=== PATIENT | female | born 1955 | race Caucasian/White ===

== ENCOUNTER 2019-05-24 19:16 | Emergency (ER) | payer MEDICAID, SELFPAY ==
[2019-05-24] VITALS (9 sets, daily range): BP systolic 130–148; BP diastolic 66–73; PULSE 60–74; RESP 16–24; TEMP 36.4–36.8; O2SAT 94–96
--- NOTE | 2019-05-24 19:25 | ED_ITS ---
Entered by Ramona Garcia, acting as scribe for Demetria Gaffney HPI - Arrhythmia/Palpitations General: Chief Complaint: General Medical Stated Complaint: heart palpitations/light headed Time Seen by Provider: 05/24/19 19:21 Source: patient and family Mode of arrival: ambulatory History of Present Illness: HPI narrative: 64 y/o female presents to the ED with complaint of lightheadedness and rapid HR. Pt states she has a Pacemaker/Defibrilator that was adjusted this last summer. Pt was seen here at that time for similar symptoms. She reports having some mild SOB. Pt states this started yesterday but has persisted today. She denies any chest pain, syncope, but does get lightheaded when she stands up quickly. MD complaint: rapid heart beat Onset (ago): day(s) (1) Duration: constant Severity: similar to previous episodes Context: awoke with symptoms Associated symptoms: Deny diaphoresis, nausea, pre-syncope, syncope or vomiting Review of Systems 2 General: Reports: other (negative unless marked) Const: Denies: fever, chills, body aches, fatigue, malaise or diaphoresis Eyes: Denies: change in vision or blurry vision ENMT: Denies: throat pain, painful swallowing, hoarseness, ear pain, ear discharge, Change in hearing or nasal discharge Card: Reports: palpitations, irregular heart rhythm and lightheadedness; Denies: syncope, pre-syncope, shortness of breath on exertion, shortness of breath when lying down or leg pain with exertion Resp: Denies: productive cough, non-productive cough, wheezing, coughing up blood or chest congestion GI: Denies: abdominal pain, nausea, vomiting, vomiting blood, coffee grounds in vomit, diarrhea, constipation, cramping, blood in stool or black tarry stool : Denies: flank pain, painful urination, urinary frequency, urinary urgency, decreased urine ouput, urinary incontinence or blood in urine Musc: Denies: neck pain, back pain, extremity pain, extremity swelling, joint pain, joint swelling, joint warmth or joint stiffness Skin/Breast: Denies: rash, skin tenderness or yellow skin Neuro: Denies: headache, numbness in extremities, weakness in extremities, changes in sensation, lack of coordination, difficulty walking, vertigo or confusion Endo: Denies: excessive thirst, tired all the time, cold intolerance, excessiv e sweating, flushing or hot flashes Vinny/Lymph: Denies: easy bruising, easy bleeding, petechiae or enlarged lymph nodes All/Imm: Denies: hives, throat swelling, tongue swelling, facial swelling or acute wheezing PFSH ED PFSH: Statuses (acute, chronic, etc) shown below reflect problem list status as previously entered and may not be historically accurate Social History Smoking and tobacco status: never smoked Physical Exam Const: COMMON NORMALS: no apparent distress, oriented x3, no limitations, healthy appearing and well nourished EXAM LIMITATIONS: no altered mental status GENERAL APPEARANCE: cooperative, well kempt and well developed ORIENTATION/CONSCIOUSNESS: Yes awake HENMT: COMMON NORMALS: normocephalic, head/scalp atraumatic, hearing grossly normal bilaterally, external ears normal, EAC's normal, external nose normal and moist oral mucous membranes HEAD & SCALP: normal to inspection, normocephalic and atraumatic FACE & SINUS: normal facial exam and face symmetric NOSE: external nose normal and nares normal EXTERNAL EAR: Yes external ears normal EXTERNAL AUDITORY CANAL: EAC's normal MOUTH: oral and palatal mucosa normal and tongue normal Eye: COMMON NORMALS: PERRL, EOMs intact bilaterally, conjunctivae normal and no scleral icterus GENERAL EYE: normal appearance of both eyes and normal light reflex CONJUNCTIVA: Yes conjunctivae normal SCLERA: sclerae normal CORNEA: Yes corneas normal PUPIL: Yes PERRL DIRECT OPHTHALMOSCOPY: Yes normal light reflex Neck/C-Spine: COMMON NORMALS: full ROM, no lymphadenopathy, supple, no meningeal signs and no JVD GENERAL: Yes normal visual inspection and Yes trachea midline CERVICAL SPINE: Yes cervical ROM normal Chest: COMMONS NORMALS: inspection of chest normal and palpation of chest normal Resp: COMMON NORMALS: normal respiratory effort, no retractions, no use of accessory muscles and clear to auscultation bilaterally EFFORT & INSPECTION: Yes able to speak in complete sentences AUSCULTATION: clear to auscultation bilaterally Cardio: COMMON NORMALS: no JVD, regular rate, regular rhythm, S1 normal heart sound, S2 normal heart sound, no gallops, no clicks, no murmurs and no rub JUGULAR VENOUS DISTENTION: no JVD RATE: regular rate RHYTHM: regular rhythm HEART SOUNDS: S1 normal and S2 normal GI: COMMON NORMALS: soft to palpation, non-tender, no hepatosplenomegaly and no masses INSPECTION: Yes normal to inspection PALPATION: Yes soft and Yes no hepatosplenomegaly : COMMON NORMALS: Yes no CVA tenderness BLADDER/KIDNEY EXAM: Yes no CVA tenderness Back/Pelvis: COMMON NORMALS: no CVA tenderness, thoracic and lumbar spine norm al to inspection, no thoracic nor lumbar tenderness and thoraco-lumbar ROM normal Extremity: COMMON NORMALS: normal to inspection, full ROM, normal capillary refill, no joint enlargement, no clubbing, cyanosis or edema and no calf tenderness Neuro: COMMON NORMALS: oriented x3, CN's II-XII intact bilaterally, moves all extremities, no focal motor deficits and no sensory deficits noted MENINGEAL SIGNS: Yes no meningeal signs Psych: COMMON NORMALS: mental status grossly normal, thought process normal, cooperative, affect normal, speech normal and activity/motor behavior normal APPEARANCE: Yes well kempt SPEECH: Yes normal speech THOUGHT PROCESS: normal thought process Skin: COMMON NORMALS: no rashes or lesions noted, skin turgor normal, no jaundice, no petechiae and no mottling GENERAL SKIN EXAM: no rashes or lesions noted and turgor normal Course Vital Signs: Vital signs: Vital Signs Temperature 98.3 F 05/24/19 19:56 Pulse Rate 60 05/24/19 23:38 Respiratory Rate 24 H 05/24/19 23:38 Blood Pressure 130/66 05/24/19 23:38 Pulse Oximetry 95 05/24/19 23:38 MDM - Arrhythmia/Palpitations MDM Narrative: Medical decision making narrative: Cindy's pacemaker was interrogated and she has had multiple short runs of ventricular tachycardia that have always been terminated by her pacemaker/defibrillator. Episodes are typically lasting between 6 and 8 seconds at most 10 to 15 seconds. Her EKG is here tonight show a paced rhythm AV sequential paced rhythm with 100% capture with occasional PVC. Potassium magnesium are normal. She is not having chest pain and her troponin has not risen. I reviewed the case in full with Dr. Adams who knows the patient well and is taken care of her before for the same exact problem. He states that the patient can increase her amiodarone to 400 mg daily and stop her digoxin. The patient already has a follow-up appointment with him in the office this week. She declines admission even though I have offered and she wants to go home with Dr. Adams's recommendations. Dr. Adams says she has no history of coronary disease and believes that she will be safe for discharge as her pacemaker is working appropriately and her amiodarone should help prevent any further problems. Lab Data: Attestation: I reviewed the patient's lab results. Labs: Lab Results 05/24/19 05/24/19 05/24/19 Range/Units 19:40 19:40 19:40 WBC 10.4 H (4.0-10.0) 10^3/ uL RBC 4.79 (4.1-5.3) 10^6/u L Hgb 14.9 (11.5-15.3) g/dL Hct 45.3 (37.0-47.0) % MCV 94.6 (81-99) fL MCH 31.1 (28.0-34.0) pg MCHC 32.9 (30.0-36.0) g/dL RDW 12.9 (12.1-15.1) % Plt Count 234 (130-400) 10^3/c mm MPV 10.9 H (7.4-10.4) fL Neut % (Auto) 63.7 % Lymph % (Auto) 22.8 % Manati % (Auto) 8.4 % Eos % (Auto) 3.7 % Baso % (Auto) 1.0 % Neut # (Auto) 6.6 (1.8-7.7) 10^3/u L Lymph # (Auto) 2.4 (0.8-4.8) 10^3/u L Manati # (Auto) 0.9 (0.2-0.9) 10^3/u L Eos # (Auto) 0.4 (0.0-0.8) 10^3/u L Baso # (Auto) 0.1 (0.0-0.1) 10^3/u L Nucleated RBC % (a uto) 0 % Nucleated RBCs # 0.0 /100WBC PT (10.5-13.3) SECO NDS INR (0.8-1.2) APTT (23.9-36.7) SECO NDS Sodium 134 L (136-145) mmol/L Potassium 4.4 (3.5-5.1) mmol/L Chloride 95 L (98-107) mmol/L Carbon Dioxide 30 H (22-29) mmol/L Anion Gap 13.4 (5-19) BUN 19 (8-23) mg/dL Creatinine 0.7 (0.5-0.9) mg/dL GFR Calculation 83.7 L (90-130) mL/min Glucose 120 H (74-106) mg/dL Calcium 9.6 (8.8-10.2) mg/Dl Magnesium 2.4 H (1.7-2.3) mg/dL Total Bilirubin 0.4 (0.15-1.2) mg/dL AST 28 (0-32) U/L ALT 29 (0-33) U/L Alkaline Phosphata se 201 H (35-105) IU/L Troponin T Baselin e 19 H (0-10) ng/mL Troponin T 120 Min rosebud (0-10) ng/mL Delta Troponin T (0-10) ABS# Total Protein 7.6 (6.6-8.7) g/dL Albumin 4.3 (3.5-5.2) g/dL Globulin 3.3 (1.3-4.6) g/dL Urine Color (Yellow) Urine Appearance (CLEAR) Urine pH (5-7) Ur Specific Gravit y (1.005-1.030) Urine Protein (Negative) Urine Glucose (UA) (Normal) Urine Ketones (Negative) Urine Occult Blood (Negative) Urine Nitrate (Negative) Urine Bilirubin (NEGATIVE) Urine Urobilinogen (Negative) mg/dL Ur Leukocyte Vianney ase (Negative) Urine RBC (0-2) /hpf Urine WBC (0-5) /hpf Ur Squamous Epith Cells (0-5) Urine Bacteria (NONE) Digoxin (0.6-1.2) ng/mL 05/24/19 05/24/19 05/24/19 Range/Units 19:40 19:40 19:50 WBC (4.0-10.0) 10^3/ uL RBC (4.1-5.3) 10^6/u L Hgb (11.5-15.3) g/dL Hct (37.0-47.0) % MCV (81-99) fL MCH (28.0-34.0) pg MCHC (30.0-36.0) g/dL RDW (12.1-15.1) % Plt Count (130-400) 10^3/c mm MPV (7.4-10.4) fL Neut % (Auto) % Lymph % (Auto) % Manati % (Auto) % Eos % (Auto) % Baso % (Auto) % Neut # (Auto) (1.8-7.7) 10^3/u L Lymph # (Auto) (0.8-4.8) 10^3/u L [place] # (Auto) (0.2-0.9) 10^3/u L Eos # (Auto) (0.0-0.8) 10^3/u L Baso # (Auto) (0.0-0.1) 10^3/u L Nucleated RBC % (a uto) % Nucleated RBCs # /100WBC PT 18.60 H (10.5-13.3) SECO NDS INR 1.50 H (0.8-1.2) APTT 29.8 (23.9-36.7) SECO NDS Sodium (136-145) mmol/L Potassium (3.5-5.1) mmol/L Chloride (98-107) mmol/L Carbon Dioxide (22-29) mmol/L Anion Gap (5-19) BUN (8-23) mg/dL Creatinine (0.5-0.9) mg/dL GFR Calculation (90-130) mL/min Glucose (74-106) mg/dL Calcium (8.8-10.2) mg/Dl Magnesium (1.7-2.3) mg/dL Total Bilirubin (0.15-1.2) mg/dL AST (0-32) U/L ALT (0-33) U/L Alkaline Phosphata se (35-105) IU/L Troponin T Baselin e (0-10) ng/mL Troponin T 120 Min rosebud (0-10) ng/mL Delta Troponin T (0-10) ABS# Total Protein (6.6-8.7) g/dL Albumin (3.5-5.2) g/dL Globulin (1.3-4.6) g/dL Urine Color Yellow (Yellow) Urine Appearance Clear (CLEAR) Urine pH 7 (5-7) Ur Specific Gravit y 1.010 (1.005-1.030) Urine Protein Neg (Negative) Urine Glucose (UA) Norm (Normal) Urine Ketones Negative (Negative) Urine Occult Blood Neg (Negative) Urine Nitrate Negative (Negative) Urine Bilirubin Neg (NEGATIVE) Urine Urobilinogen Norm (Negative) mg/dL Ur Leukocyte Vianney ase Negative (Negative) Urine RBC 0-4 H (0-2) /hpf Urine WBC 5-10 H (0-5) /hpf Ur Squamous Epith Cells 0-4 H (0-5) Urine Bacteria 1+ H (NONE) Digoxin 0.9 (0.6-1.2) ng/mL 05/24/19 Range/Units 21:23 WBC (4.0-10.0) 10^3/ uL RBC (4.1-5.3) 10^6/u L Hgb (11.5-15.3) g/dL Hct (37.0-47.0) % MCV (81-99) fL MCH (28.0-34.0) pg MCHC (30.0-36.0) g/dL RDW (12.1-15.1) % Plt Count (130-400) 10^3/c mm MPV (7.4-10.4) fL Neut % (Auto) % Lymph % (Auto) % Manati % (Auto) % Eos % (Auto) % Baso % (Auto) % Neut # (Auto) (1.8-7.7) 10^3/u L Lymph # (Auto) (0.8-4.8) 10^3/u L [place]ati # (Auto) (0.2-0.9) 10^3/u L Eos # (Auto) (0.0-0.8) 10^3/u L Baso # (Auto) (0.0-0.1) 10^3/u L Nucleated RBC % (a uto) % Nucleated RBCs # /100WBC PT (10.5-13.3) SECO NDS INR (0.8-1.2) APTT (23.9-36.7) SECO NDS Sodium (136-145) mmol/L Potassium (3.5-5.1) mmol/L Chloride (98-107) mmol/L Carbon Dioxide (22-29) mmol/L Anion Gap (5-19) BUN (8-23) mg/dL Creatinine (0.5-0.9) mg/dL GFR Calculation (90-130) mL/min Glucose (74-106) mg/dL Calcium (8.8-10.2) mg/Dl Magnesium (1.7-2.3) mg/dL Total Bilirubin (0.15-1.2) mg/dL AST (0-32) U/L ALT (0-33) U/L Alkaline Phosphata se (35-105) IU/L Troponin T Baselin e (0-10) ng/mL Troponin T 120 Min rosebud 16.08 H (0-10) ng/mL Delta Troponin T -2.92 L (0-10) ABS# Total Protein (6.6-8.7) g/dL Albumin (3.5-5.2) g/dL Globulin (1.3-4.6) g/dL Urine Color (Yellow) Urine Appearance (CLEAR) Urine pH (5-7) Ur Specific Gravit y (1.005-1.030) Urine Protein (Negative) Urine Glucose (UA) (Normal) Urine Ketones (Negative) Urine Occult Blood (Negative) Urine Nitrate (Negative) Urine Bilirubin (NEGATIVE) Urine Urobilinogen (Negative) mg/dL Ur Leukocyte Vianney ase (Negative) Urine RBC (0-2) /hpf Urine WBC (0-5) /hpf Ur Squamous Epith Cells (0-5) Urine Bacteria (NONE) Digoxin (0.6-1.2) ng/mL EKG Data^: EKG 1: EKG interpretation date: 05/24/19 Interpretation: Pacemaker with 100% capture at 64 beats a minute. Rhythm is sinus driven. Other EKG comments: Head CT 05/24/19 19:31 IMPRESSION: No acute intracranial abnormality Radiation Dose CTDIVOL = (mGy): DLP = 1936.06 (mGy-cm) EKG 2: EKG interpretation date: 05/24/19 Interpretation: AV sequential pacemaker at 62 beats a minute, PVC. Other EKG comments: Head CT 05/24/19 19:31 IMPRESSION: No acute intracranial abnormality Radiation Dose CTDIVOL = (mGy): DLP = 1936.06 (mGy-cm) Discharge Plan Discharge Patient Disposition: Home, Self-Care Clinical Impression: Ventricular tachycardia (paroxysmal) Condition: Stable Prescriptions: No Action ProAir HFA RF: 0 Symbicort RF: 0 Xarelto RF: 0 carvedilol RF: 0 digoxin RF: 0 furosemide RF: 0 lisinopril RF: 0 potassium chloride RF: 0 Discharge Orders: Discharge Order (Routine); Ordered 05/24/19 Ordered By: Demetria Gaffney Referrals: Timothy Adams MD [Physician] - 1-3 days Ten Beckford DO [Primary Care Provider] - Discharge Diet: Advance as tolerated Discharge Activity: Increase activity as tolerated Patient Instructions: Pacemaker (GEN), Syncope (ED) Activity Restrictions/Additional Instructions: Please return to the ER immediately for any of the signs or symptoms listed on your discharge instruction sheets, worsening/changing of your symptoms, you are not getting better as quickly as expected, or for ANY other cause or concerns. You have been offered further evaluation and care including admission but have declined. If you change your mind or your symptoms return you are welcome to return to the ER at any time for further evaluation and care. Stop your digoxin completely. Begin taking amiodarone 400 mg once a day. Be certain to call to follow-up with Dr. Adams as soon as possible. Discharge Date/Time: 05/24/19 23:39 Coding Level of Care Code ED Turning Sander Operator for Chg Fwd Exam Problem Focused The documentation recorded by the Jose parrish Ashley, accurately reflects the service I personally performed and the decisions made by , Demetria Gaffney May 24, 2019 19:16
--- NOTE | 2019-05-24 19:31 | ECG_ITS ---
Measurements Intervals [place] Rate: 64 P: 75 OR: 130 QRS: -63 QRSD: 214 T: 57 QT: 485 QTc: 501 ELECTRONIC VENTRICULAR PACEMAKER ABNORMAL RHYTHM ECG Compared to ECG 12/31/2018 15:03:48 No significant changes Electronically Signed On 05-25-2019 17:20:30 ANIMAL CAREGIVER by Timothy Adams M.D. [id number]
--- NOTE | 2019-05-24 19:31 | XR_ITS ---
WS: [id number] PORTABLE CHEST HISTORY: cough COMPARISON: 12/31/2018 LEFT subclavian pacer/defibrillator. Lung volumes are decreased. Atelectasis at the LEFT lung base. LEFT hemidiaphragm is partially obscur ed No pleural effusion or pneumothorax. Cardiac size: Moderately enlarged cardiac silhouette. Mediastinum/Aorta: Mild atherosclerosis aorta. Ectatic thoracic aorta. No osseous abnormality seen. XR/XR chest 1V portable [id number] IMPRESSION: 1. LEFT basilar atelectasis. 2. Moderate cardiomegaly.
--- NOTE | 2019-05-24 19:31 | CTR_ITS ---
PROCEDURE INFORMATION: Exam: CT Head Without Contrast Exam date and time: 05/24/2019 7:33 PM Age: 64 years old Clinical indication: Pain; Headache not specified; Additional info: Hamilton/ams TECHNIQUE: Imaging protocol: Computed tomography of the head without contrast. Total DLP: 1936.06 mGy-cm Radiation optimization: All CT scans at this facility use at least one of these dose optimization techniques: automated exposure control; mA and/or kV adjustment per patient size (includes targeted exams where dose is matched to clinical indication); or iterative reconstruction. 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 Mild atrophy and mild white matter chronic microvascular changes are noted. No hemorrhage or CT evidence of acute infarction is seen. Ventricles: Normal. No ventriculomegaly. Bones/joints: Unremarkable. No acute fracture. Sinuses: Visualized sinuses are unremarkable. No fluid levels. Mastoid air cells: Visualized mastoid air cells are well aerated. Soft tissues: Unremarkable. CT/CT head wo con* [id number] IMPRESSION: No acute intracranial abnormality Radiation Dose CTDIVOL = (mGy): DLP = 1936.06 (mGy-cm)
[2019-05-24 19:49] LABS: Basophils # 0.1 10^3/uL (0.0-0.1); Eosinophils # 0.4 10^3/uL (0.0-0.8); Eosinophils % 3.7 %; Hematocrit 45.3 % (37.0-47.0); Hemoglobin 14.9 g/dL (11.5-15.3); Lymphocytes # 2.4 10^3/uL (0.8-4.8); Lymphocytes % 22.8 %; Mean Corpuscular HGB Conc 32.9 g/dL (30.0-36.0); Mean Corpuscular Hemoglobin 31.1 pg (28.0-34.0); Mean Corpuscular Volume 94.6 fL (81-99); Mean Platelet Volume 10.9 fL (7.4-10.4); Monocytes # 0.9 10^3/uL (0.2-0.9); Monocytes % 8.4 %; Neutrophils # 6.6 10^3/uL (1.8-7.7); Neutrophils % 63.7 %; Nucleated Red Blood Cells % 0 %; Platelet Count 234 10^3/cmm (130-400); Red Blood Count 4.79 10^6/uL (4.1-5.3); Red Cell Distribution Width 12.9 % (12.1-15.1); White Blood Count 10.4 10^3/uL (4.0-10.0)
[2019-05-24 20:00] LABS: Partial Thromboplastin Time 29.8 SECONDS (23.9-36.7)
[2019-05-24 20:08] LABS: Troponin(5th) Baseline 19 ng/mL (0-10)
--- NOTE | 2019-05-24 20:12 | PC.NURSE ---
Introduced self to patient and initiated vital signs. Pt is A&O x 4 and agreeable. Pt states that the reason for the ER visit today is due to heart palpitations. Reassured patient of needs and will continue to monitor. Awaiting provider at bedside.
--- NOTE | 2019-05-24 20:13 | PC.NURSE ---
Assisted pt to restroom.
[2019-05-24] MEDS: sodium chloride 0.9% 1,000 ML 100 ML IV (20:18)
[2019-05-24 20:21] LABS: Alanine Aminotransferase 29 U/L (0-33); Albumin Level 4.3 g/dL (3.5-5.2); Alkaline Phosphatase 201 IU/L (35-105); Anion Gap 13.4 (5-19); Aspartate Amino Transferase 28 U/L (0-32); Blood Urea Nitrogen 19 mg/dL (8-23); Calcium 9.6 mg/Dl (8.8-10.2); Carbon Dioxide 30 mmol/L (22-29); Chloride 95 mmol/L (98-107); Globulin 3.3 g/dL (1.3-4.6); Glomerular Filtration Rate 83.7 mL/min (90-130); Glucose 120 mg/dL (74-106); Magnesium 2.4 mg/dL (1.7-2.3); Potassium 4.4 mmol/L (3.5-5.1); Sodium 134 mmol/L (136-145); Total Bilirubin 0.4 mg/dL (0.15-1.2); Total Protein 7.6 g/dL (6.6-8.7)
[2019-05-24 20:46] LABS: Bacteria Urine 1+; Bilirubin Urine Neg (NEGATIVE); Blood Urine Neg (Negative); Glucose Urine UA Norm (Normal); Ketones Urine Negative (Negative); Leukocyte Esterase Urine Negative (Negative); Nitrate Urine Negative (Negative); Protein Urine Neg (Negative); RBC Urine 0-4 /hpf (0-2); Squamous Epithelial Cell Urine 0-4 (0-5); Urine Appearance Clear (CLEAR); Urine Color Yellow (Yellow); Urobilinogen Urine Norm (Negative); pH Urine 7 (5-7)
[2019-05-24] MEDS: sodium chloride 0.9% 1,000 ML 999 ML IV (21:21)
--- NOTE | 2019-05-24 21:31 | ECG_ITS ---
Measurements Intervals [place] Rate: 62 P: 229 IL: 174 QRS: -63 QRSD: 216 T: 0 QT: 525 QTc: 536 ELECTRONIC ATRIAL PACEMAKER ELECTRONIC VENTRICULAR PACEMAKER ABNORMAL RHYTHM ECG Compared to ECG 12/31/2018 15:03:48 No significant changes Electronically Signed On 05-25-2019 17:26:51 RURAL ELECTRIFICATION ENGINEER by Timothy Adams M.D. [id number]
[2019-05-24 21:51] LABS: Digoxin 0.9 ng/mL (0.6-1.2)
[2019-05-24 22:25] LABS: Troponin 5 2HR 16.08 ng/mL (0-10); Troponin 5 2HR Delta -2.92 ABS# (0-10)
[2019-05-24] MEDS: amiodarone 200 mg Tablet PO (23:17)
--- NOTE | 2019-05-25 12:30 | DCPLANNER ---
facility manager histology had message to schedule a follow up appointment for patient with [facility]. facility manager histology called [facility], spoke with Eunice, a follow up appointment is scheduled for , May 28, 2019 at 2:[address] Adams. Clinic will call patient with appointment information.
--- NOTE | 2019-05-29 15:18 | DCPLANNER ---
Patient attended appointment with [facility].
== END 2019-05-24 23:39 | disposition home or self-care (01) ==
PROVIDERS: Emergency Provider Emergency Medicine; Family Provider Family Medicine; PCP Family Medicine
DX: I47.2 Ventricular tachycardia (principal)
CPT/HCPCS: 70450; 71045; 80053; 80162; 81001; 83735; 84484; 85025; 85610; 85730; 93005; 96360; 96361; 99283; J7030

== ENCOUNTER 2021-04-14 10:29 | Outpatient (CLI) | payer MEDICAID, SELFPAY ==
--- NOTE | 2021-04-14 10:15 | USCV_ITS ---
Cindy Mccormick Age: 66 Gender: F : 1955 Exam Date: 04/14/2021 10:44 Ordering Phys: Celso Sosa M.D ([email or web address]) Technologist: Swapna Rhoades Exam Location: [facility] [place] Indication: MARFANS PACER BP: 120 / 70 HR: 73 Rhythm: Sinus Technical Quality: Adequate MEASUREMENTS (Male / Female) Normal Values 2D ECHO LV Diastolic Diameter PLAX 6.0 cm 4.2 - 5.9 / 3.9 - 5.3 cm LV Systolic Diameter PLAX 4.8 cm LV Chamber Size 5.0 cm IVS Diastolic Thickness 1.9 cm 0.6 - 1.0 / 0.6 - 0.9 cm IVS Systolic Thickness 1.7 cm LVPW Diastolic Thickness 2.1 cm 0.6 - 1.0 / 0.6 - 0.9 cm LVPW Systolic Thickness 1.9 cm RV Chamber Size 3.0 cm LVOT Diameter 2.2 cm LV Ejection Fraction 2D Teich 39.9 % LV Ejection Fraction MOD 2C 48.0 % LV Ejection Fraction 2C AL 48.7 % LA Diameter 5.1 cm LA Width 3.9 cm LA Height 5.8 cm RA Width 3.4 cm RA Height 3.9 cm Aorta at Sinotubular Diameter 3.9 cm M-MODE Aortic Annulus Diameter 4.3 cm LA Ao Ratio MM 1.5 MV E Point Septal Separation 2.2 cm DOPPLER AV Peak Velocity 187.7 cm/s LVOT Peak Velocity 82.7 cm/s AV Area Cont Eq vti 1.6 cm squared AV Area Cont Eq pk 1.7 cm squared MV Area PHT 4.2 cm squared Mitral E to A Ratio 1.1 MV E' Velocity 40.5 cm/s Mitral E to MV E' Ratio 13.6 Mitral E to LV E' Lateral Ratio 12.1 Mitral E to LV E' Septal Ratio 15.6 TR Peak Velocity 229.1 cm/s TR Peak Gradient 21.0 mmHg TR Mean Velocity 162.8 cm/s TR Mean Gradient 11.8 mmHg TR Velocity Time Integral 55.8 cm TV Peak E Velocity 67.0 cm/s Right Atrial Pressure 3.0 mmHg Pulmonary Artery Systolic Pressu 24.0 mmHg PV Peak Velocity 70.0 cm/s RV Acceleration Time 0.1 s RV Ejection Time 0.3 s RV AcT/ET 0.3 FINDINGS Left Ventricle Left ventricle is dilated. LV systolic function is severely reduced with EF of 30-35%. Severe global hypokinesis. Diastolic function is abnormal Right Ventricle The right ventricle is normal in size. RV is hypokinetic. Pacemaker wire is noted Right Atrium The right atrium is normal in size. Pacemaker wire is seen Left Atrium The left atrium is dilated Mitral Valve Structurally normal mitral valve without significant stenosis or prolapse. There is mild to moderate mitral regurgitation. Aortic Valve Structurally normal aortic valve without significant sclerosis or stenosis. There is moderate aortic regurgitation. Tricuspid Valve Structurally normal tricuspid valve without significant stenosis. Mild tricuspid regurgitation. Insufficient TR jet to calculate RVSP Pulmonic Valve Grossly normal Pericardium Normal pericardium without effusion. Aorta Ascending aorta is mildly dilated CONCLUSIONS Left ventricle is dilated LV systolic function is severely reduced with EF of 30-35%. Diastolic function is abnormal Severe global hypokinesis is seen RV hypokinesis seen Left atrial enlargement Mild to moderate mitral regurgitation Moderate aortic regurgitation Mild tricuspid regurgitation Ascending aorta is mildly dilated Compared to prior echocardiogram from 07/16/2018, no significant changes are noted Celso Sosa MD (Electronically Signed) Final Date: 17 April 2021 15:30 S
== END 2021-04-14 10:30 | disposition home or self-care (01) ==
LOC: RAD 10:32
PROVIDERS: PCP Family Medicine; Visit Provider Internal Medicine
DX: I08.3 Combined rheumatic disorders of mitral, aortic and tricuspid valves (principal)
CPT/HCPCS: 93306